=== PATIENT | female | born 1995 | race Caucasian/White ===

== ENCOUNTER 2022-07-01 16:24 | Outpatient (REF) | payer OTHER, SELFPAY ==
--- NOTE | ~2022-07-01 | XR_ITS ---
EXAMINATION: XR LUMBOSACRAL SPINE CLINICAL INFORMATION: Pain COMPARISON: None available. TECHNIQUE: Three views of the lumbosacral spine. FINDINGS: Bone alignment is normal. No fracture or dislocation. Normal disc spaces. Lower lumbar spine facet arthritis. XR/XR lumbar spine 2-3V IMPRESSION: Lower lumbar spine facet arthritis.
== END 2022-07-01 16:25 | disposition home or self-care (01) ==
LOC: HO.XRAY 16:24
PROVIDERS: PCP Internal Medicine; Visit Provider Internal Medicine
DX: M54.41 Lumbago with sciatica, right side (principal); G89.29 Other chronic pain
CPT/HCPCS: 72100

== ENCOUNTER 2022-09-23 17:15 | Outpatient (REF) | payer OTHER, SELFPAY ==
[2022-09-24 04:00] LABS: Influenza A PCR NEGATIVE (Negative); Influenza B PCR NEGATIVE (Negative); Resp Syncy Virus RNA Qual PCR NEGATIVE (Negative); SARS COV2 PCR INHOUSE NEGATIVE (Negative)
== END 2022-09-23 17:16 | disposition home or self-care (01) ==
LOC: HO.HHCLNP 17:15
PROVIDERS: Visit Provider Registered Nurse
DX: J02.9 Acute pharyngitis, unspecified (principal); Z20.822 Contact with and (suspected) exposure to COVID-19
CPT/HCPCS: 0241U; 87070

== ENCOUNTER 2022-10-13 18:01 | Outpatient (REF) | payer OTHER, SELFPAY | END 2022-10-13 18:02 | disposition home or self-care (01) | LOC: HO.HHCLNP 18:01 | PROVIDERS: Visit Provider Registered Nurse | DX: N30.01 Acute cystitis with hematuria (principal) | CPT/HCPCS: 87086 ==

== ENCOUNTER 2022-10-21 13:30 | Outpatient (REF) | payer OTHER, SELFPAY ==
--- NOTE | ~2022-10-21 | US_ITS ---
EXAMINATION: US RETROPERITONEAL LIMITED (RENAL ONLY) CLINICAL INFORMATION: Hematuria. Back pain. COMPARISON: None available. TECHNIQUE: Real-time imaging of the kidneys. Technically limited study secondary to bowel gas and body habitus. FINDINGS: RIGHT KIDNEY: 10.6 x 4.8 x 5.0 cm (SAG x AP x TRV). The kidney is normal in size, contour, and echogenicity. Renal cortical thickness is normal. No calculi or focal parenchymal lesions. No hydronephrosis. LEFT KIDNEY: 10.9 x 6.4 x 4.5 cm (SAG x AP x TRV). The kidney is normal in size, contour, and echogenicity. Renal cortical thickness is normal. No calculi or focal parenchymal lesions. No hydronephrosis. US/US renal BI IMPRESSION: Unremarkable examination.
== END 2022-10-21 13:31 | disposition home or self-care (01) ==
LOC: HO.US 13:30
PROVIDERS: PCP Internal Medicine; Visit Provider Registered Nurse
DX: N30.01 Acute cystitis with hematuria (principal); M54.9 Dorsalgia, unspecified
CPT/HCPCS: 76775

== ENCOUNTER 2022-11-11 18:12 | Emergency (ER) | payer OTHER, SELFPAY ==
--- NOTE | ~2022-11-11 | US_ITS ---
EXAMINATION: US VENOUS ULTRASOUND WITH DOPPLER LOWER EXTREMITY, LEFT CLINICAL INFORMATION: Pain. COMPARISON: None available. TECHNIQUE: Ultrasound of the deep veins is performed from the hip to the calf with compression sonography and color and pulse Doppler assessment. Spectral analysis with color-flow imaging is performed. FINDINGS: There is normal venous compression and respiratory variation and augmented flow. The visualized common femoral vein, superficial femoral vein, profunda femoral vein, popliteal vein, and the trifurcation region shows no evidence of deep venous thrombosis. There is no significant popliteal fossa cyst. If the patient's symptoms persist, followup ultrasound in 5 days 7 days might be of value to exclude proximal propagation from a non-visualized calf vein. US/US venous duplex LE LT IMPRESSION: No DVT demonstrated in the left lower extremity.
--- NOTE | ~2022-11-11 | XR_ITS ---
EXAMINATION: XR KNEE, LEFT CLINICAL INFORMATION: Pain COMPARISON: None available. TECHNIQUE: Four views of the left knee. FINDINGS: No acute visible fracture or dislocation. Joint spaces and alignment are maintained. No large knee joint effusion. Soft tissues are unremarkable. XR/XR knee LT 3V IMPRESSION: No acute visible fracture or dislocation.
[2022-11-11 18:25] VITALS: BP 138/86; PULSE 96; RESP 16; TEMP 36.6; O2SAT 97; BMI 43.3
--- NOTE | 2022-11-11 18:27 | ED_ITS ---
HPI - General Adult General Chief complaint: Extremity Problem Stated complaint: L knee swollen, no injury Time Seen by Provider: 11/11/22 19:13 Source: patient Mode of arrival: ambulatory Limitations: no limitations History of Present Illness HPI narrative: Patient is a 27-year-old female who presents emergency department for evaluation of atraumatic left knee pain and swelling for the past 3 days. Tenderness upon palpation. Denies any history of similar. Denies redness, warmth, fevers, chills numbness or tingling of the lower extremity. Denies calf pain, swelling, personal history of DVT/PE/malignancy, with recent prolonged immobilization or surgery. Related Data Allergies Allergy/AdvReac Type Severity Reaction Status Date / Time No Known Allergies Allergy Verified 11/11/22 18:25 Review of Systems Review of Systems: Yes all other systems are reviewed and are negative [facility] Past Medical History Attestation statement: The following information was validated with the patient. Source: old records reviewed Social History Social History Advance Directives: No Advance Directives Information Provided: Yes Physical Exam ED Vital Signs: Vital Signs - 24 hr 11/11/22 18:25 Temperature 97.9 F Pulse Rate 96 Respiratory Rate 16 Blood Pressure 138/86 Pulse Oximetry 97 Oxygen Delivery Method Room Air BMI result Body Mass Index 43.3 Appearance: Alert.?Oriented to person, place and time. No acute distress.?Normal affect. Neck: Normal inspection.? Neck supple.?? CVS: Heart sounds normal. Normal heart rate and rhythm.? Pulses normal.?? Respiratory: No respiratory distress.? Lung sounds clear to auscultation bilaterally?? Abdomen: Soft and non-tender. Skin: Skin warm and dry.? Normal skin color.? Extremities: No lower extremity edema.? No calf ttp?left knee with no laxity upon examination, no erythema, no warmth, no large effusion. 2+ DP/PT pulse bilaterally. Localized tenderness to the suprapatellar region. Neuro: Moves all extremities spontaneously. Sensation intact bilaterally. Ambu lates with normal steady gait. Course Course Course Narrative: RME- 27 year old female presents for evaluation of two days of left knee swelling. Denies any specific injury. She is on oral contraception. Plan for xray and us of left lower extremity Medical Decision Making Medical Decision Making MDM Narrative: Patient is a 27-year-old female presents emergency department for evaluation of atraumatic left knee pain and subjective swelling with onset 3 days ago. Upon physical examination there is no laxity, no effusion, no erythema or warmth to suggest a septic arthritis. Unlikely fracture dislocation given atraumatic nature. Reviewed XR imaging which confirms no fracture dislocation. Venous duplex ultrasound was obtained which reveals no evidence of DVT. Discussed plan of care for discharge to, outpatient follow-up with primary care provider, rest, ice, compression, elevation, in addition to acetaminophen and ibuprofen for pain. Differential Diagnosis Differential Diagnoses: The differential diagnosis associated with the presentation includes (As noted above) Independent Interpretation I performed an independent interpretation of an: Plain X-Ray (I personally interpreted XR imaging of the left knee and agree with radiologist impression, no overt effusion, fracture dislocation) Radiology Impression Discussion of test interpretation with radiology: I have reviewed the radiologist's reading. Radiologist Impression: XR/XR knee LT 3V IMPRESSION: No acute visible fracture or dislocation. US/US venous duplex LE LT IMPRESSION: No DVT demonstrated in the left lower extremity. Prescription Management I considered prescription management with: Pain Medication (Acetaminophen/ibuprofen) Discharge Plan Discharge Clinical Impression: Arthralgia of knee, left Patient Disposition: Home, Self-Care Instructions: Knee Pain (ED), Arthralgia (ED) Additional Instructions: Your ultrasound and x-ray today were normal. This is very reassuring. Please be sure to rest, apply ice for 10-15 minutes 3-4 times daily, use Bossman bandage for compression, elevate your leg above the level of your chest. You can take ibuprofen 200 mg, 3 tablets (600mg) every 6-8 hours as needed for pain, in addition to Tylenol 500 mg, 2 tablets (1,000mg) every 4-6 hours as needed for pain, but not to exceed 3 doses daily (3,000mg).? Contact your primary care provider to arrange for follow-up. You may return back to emergency department any new or worsening symptoms or concerns. Referrals: Meg Hickey MD [Primary Care Provider] - Interventions: ED Discharge Assessment Last Done: 11/11/22 21:10 Discharge Date/Time: 11/11/22 21:11
== END 2022-11-11 21:11 | disposition home or self-care (01) ==
PROVIDERS: Emergency Provider Student in an Organized Health Care Education/Training Program; PCP Internal Medicine
DX: R60.0 Localized edema (principal); M25.562 Pain in left knee
CPT/HCPCS: 73562; 93971; 99282; 99284

== ENCOUNTER 2023-02-18 09:03 | Outpatient (REF) | payer OTHER, SELFPAY ==
[2023-02-18 11:54] LABS: Estimated Average Glucose 97 mg/dL
[2023-02-18 12:22] LABS: Anion Gap 11 (12-20); Blood Urea Nitrogen 6 mg/dL (9-16); Calcium 9.2 mg/dL (8.4-10.2); Carbon Dioxide 25 mmol/L (22-29); Chloride 108 mmol/L (96-108); Cholesterol 169 mg/dL (<200); Estimated Glomerular Filt Rate > 60; Glucose Random 93 mg/dL (60-115); HDL Cholesterol 54 mg/dL (>40); LDL Cholesterol Calculated 104 mg/dL (<100); Potassium 3.8 mmol/L (3.3-5.1); Sodium 140 mmol/L (135-145); Triglycerides 55 mg/dL (<150)
[2023-02-18 12:29] LABS: TSH reflex Free T4 1.31 uIU/mL (0.32-4.0)
== END 2023-02-18 09:04 | disposition home or self-care (01) ==
LOC: HO.HHCL 09:03
PROVIDERS: Visit Provider Internal Medicine
DX: E66.01 Morbid (severe) obesity due to excess calories (principal); E78.5 Hyperlipidemia, unspecified; Z68.41 Body mass index [BMI] 40.0-44.9, adult
CPT/HCPCS: 36415; 80048; 80061; 83036; 84443

== ENCOUNTER 2023-10-21 15:02 | Outpatient (AMB) | payer OTHER, SELFPAY ==
--- NOTE | 2023-10-21 15:08 | MHC.OFFVIS ---
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 The patient states that she 1st injured her left knee when she fell down a flight of stairs while living in [place]. Several years later she re-injured her left knee when she crashed while snow sledding. Her pain has gotten worse over the last year in spite of continued non operative treatments. She has failed the last 6 weeks of conservative treatment. She has done physical therapy which aggravated her pain. She has also tried Tylenol and anti-inflammatory medicines which gave her minimal relief. Most of the pain is along the medial aspect of the patient's knee. She states that her left knee will give out several times per day. Allergies No Known Allergies Allergy (Verified 10/21/23 15:21) Medication List - Last Reconciled 10/21/23 by Bernardo Dawson MD drospirenone-ethinyl estradiol 3-0.03 mg 1 tab PO DAILY famotidine 20 mg PO DAILY famotidine 20 mg PO DAILY fluoride (sodium) 1.1% (Sodium Fluoride 5000 Dry Mouth) 1 appl dental DAILY fluoride (sodium) 1.1% (SF 5000 Plus) 1 appl dental DAILY fluticasone propionate 50 mcg/actuation 1 spray intranasal DAILY hydroxyzine HCl 25 mg PO BEDTIME loratadine 10 mg PO DAILY PFSH Social History (Updated 10/21/23 @ 15:31 by ALISSA Marin) Alcohol intake: current Alcohol intake frequency: holidays/special occasions only Patient Tobacco Use Status: Never used Tobacco Current occupational status: employed Physical Exam Vital Signs: BMI result Body Mass Index 43.9 Const Other: Well-nourished well-developed very friendly female awake alert and oriented x3 in no acute distress Extrem Other: Bilateral lower extremity examination shows good capillary refill, no skin lesions noted, normal sensation light touch Left knee examination shows a minimal effusion, minimal crepitus with range of motion, tenderness along her medial joint line, positive Leonard's test, no instability Results Reviewed Results Reviewed: Standing full weight-bearing x-rays of the patient's left knee show no significant bony abnormalities Assessment & Plan Assessment & Plan (1) Left knee pain: Code(s): M25.562 - Pain in left knee Category: Medical Plan Ms. Nicholas Berkowitz presents with progressively worsening left knee pain and mechanical symptoms most likely due to a tear of her medial meniscus. Thus, I will send the patient for an MRI of her left knee for further evaluation. I will see her back once the MRI is completed to discuss the findings and treatment options. Feel free to call me at any time should questions regarding her orthopedic management arise. Thank you very much for asking me to see this very friendly patient. I spent 22 minutes in reviewing the patient's records and imaging studies, seeing the patient and documenting in the medical record. Orders: Orders MR knee LT wo con 10/21/23 M25.562 - Pain in left knee Coding Level of Care Code New Pt Level 3 (94769) Diagnoses Left knee pain M25.562
[2023-10-21 15:12] VITALS: BMI 43.9
== END 2023-10-21 15:32 | disposition home or self-care (01) ==
PROVIDERS: PCP Internal Medicine; Visit Provider Orthopaedic Surgery
DX: M25.562 Pain in left knee (principal)
CPT/HCPCS: 99203

== ENCOUNTER → 2023-10-21 15:02 | Outpatient (BNVA) | payer OTHER, SELFPAY | PROVIDERS: PCP Internal Medicine; Visit Provider Orthopaedic Surgery ==

== ENCOUNTER 2023-11-17 14:59 | Outpatient (REF) | payer OTHER, SELFPAY ==
[2023-11-17 17:52] LABS: C Reactive Protein 0.99 mg/dL (< or = 0.50)
[2023-11-17 17:55] LABS: Rheumatoid Factor < 13.0 IU/mL (<15.0)
[2023-11-17 20:05] LABS: Erythrocyte Sedimentation Rate 23 MM/HR (0-20)
[2023-11-19 01:27] LABS: Lyme Abs Screen <0.90 index
[2023-11-19 14:03] LABS: Anti Nuclear Antibody Screen NEGATIVE (NEGATIVE)
== END 2023-11-17 15:00 | disposition home or self-care (01) ==
LOC: HO.LAB 14:59
PROVIDERS: PCP Internal Medicine; Visit Provider Orthopaedic Surgery
DX: S83.242A Other tear of medial meniscus, current injury, left knee, initial encounter (principal); M25.50 Pain in unspecified joint
CPT/HCPCS: 36415; 85652; 86038; 86140; 86431; 86617; 86618

== ENCOUNTER 2023-11-17 14:59 | Outpatient (AMB) | payer OTHER, SELFPAY ==
[2023-11-17 15:01] VITALS: BMI 44.6
--- NOTE | 2023-11-17 15:01 | A.OFFVIS_ITS ---
Vital Signs 11/17/23 15:01 Height 5 ft 5 in Weight 268 lb BMI 44.6 Intake Visit Reasons: Left knee pain and giving way Intake Note: Antony is a 28 year old female who presents with complaints of progressively worsening left knee pain and giving way. The patient states that she 1st injured her left knee when she fell down a flight of stairs while living in [place] several years ago. One year later she re-injured her left knee when she crashed while snow sledding. Her pain has gotten worse over the last year in spite of continued non operative treatments. She has failed the last 6 weeks of conservative treatment. She has done physical therapy which aggravated her pain. She has also tried Tylenol and anti-inflammatory medicines which gave her minimal relief. Most of the pain is along the medial aspect of the patient's knee. She states that her left knee will give out several times per day. The patient was evaluated by her primary care physician, Dr. Meg Martinez, several months ago. Dr. Martinez ordered an MRI of the patient's left knee on 09/01/2023. The patient has conservative treatment began at that time which is over 2 months ago. The patient has been doing physical therapy exercises which aggravated her pain. I once again ordered an MRI of her left knee on 10/21/2023. Once again that MRI was denied by the patient's insurance company. The patient does have a history of diffuse, generalized joint pains. She does have fibromyalgia. She has not been tested for rheumatoid arthritis or Lyme disease. Allergies No Known Allergies Allergy (Verified 11/17/23 15:03) Medication List - Last Reconciled 11/17/23 by Bernardo Dawson MD drospirenone-ethinyl estradiol 3-0.03 mg 1 tab PO DAILY famotidine 20 mg PO DAILY famotidine 20 mg PO DAILY fluoride (sodium) 1.1% (Sodium Fluoride 5000 Dry Mouth) 1 appl dental DAILY fluoride (sodium) 1.1% (SF 5000 Plus) 1 appl dental DAILY fluticasone propionate 50 mcg/actuation 1 spray intranasal DAILY hydroxyzine HCl 25 mg PO BEDTIME loratadine 10 mg PO DAILY PFSH Social History (Updated 10/21/23 @ 15:31 by ALISSA Marin) Alcohol intake: current Alcohol intake frequency: holidays/special occasions o nly Patient Tobacco Use Status: Never used Tobacco Current occupational status: employed Physical Exam Vital Signs: BMI result Body Mass Index 44.6 Const Other: Well-nourished well-developed very friendly female awake alert and oriented x3 in no acute distress Extrem Other: Bilateral lower extremity examination shows good capillary refill, no skin lesions noted, normal sensation light touch Left knee examination shows a minimal effusion, minimal crepitus with range of motion, tenderness along her medial joint line, positive Leonard's test Results Reviewed Results Reviewed: Standing full weight-bearing x-rays of the patient's left knee show minimal joint space narrowing, no acute bony abnormalities Assessment & Plan Assessment & Plan (1) Tear of medial meniscus of left knee: Code(s): S83.242A - Other tear of medial meniscus, current injury, left knee, initial encounter Category: Medical Plan Zor presents with progressively worsening left knee pain and mechanical symptoms most likely due to a tear of her medial meniscus. The patient's conservative treatment began on 09/01/2023. She has failed over 8 weeks of conservative treatment. That treatment has included physical therapy exercises, topical creams, Tylenol and anti-inflammatory medicines. Thus, I will reorder an MRI of the patient's left knee. I will also send her for blood work to help rule out rheumatoid arthritis and Lyme disease. Feel free to call me at any time should questions regarding her orthopedic management arise. I spent 21 minutes in reviewing the patient's records and imaging studies, seeing the patient and documenting in the medical record. Orders: Orders MR knee LT wo con Today S83.242A - Other tear of medial meniscus, current injury, left knee, initial encounter Rheumatoid Factor Today M25.50 - Pain in unspecified joint C Reactive Protein Today M25.50 - Pain in unspecified joint NEFTALI Reflex Titer and Pattern Today M25.50 - Pain in unspecified joint Lyme IgG/IgM w/reflex to WB Today M25.50 - Pain in unspecified joint Erythrocyte Sedimentation Rate Today M25.50 - Pain in unspecified joint Coding Level of Care Code Est Pt Level 3 (41329) Complex EM visit Add On G2211 Diagnoses Tear of medial meniscus of left knee S83.242A
== END 2023-11-17 15:20 | disposition home or self-care (01) ==
PROVIDERS: PCP Internal Medicine; Visit Provider Orthopaedic Surgery
DX: S83.242A Other tear of medial meniscus, current injury, left knee, initial encounter (principal); W10.8XXA Fall (on) (from) other stairs and steps, initial encounter
CPT/HCPCS: 99213

== ENCOUNTER 2023-12-24 18:19 | Outpatient (REF) | payer OTHER, SELFPAY ==
--- NOTE | ~2023-12-24 | MR_ITS ---
EXAMINATION: MR KNEE WITHOUT CONTRAST, LEFT CLINICAL INFORMATION: Left knee pain. Evaluate for a meniscal tear. COMPARISON: Left knee radiographs dated 11/11/2022. TECHNIQUE: MRI of the knee without contrast was performed using routine sequences on a high-field scanner. FINDINGS: MENISCI: Medial Meniscus: Intact. Lateral Meniscus: Oblique inner margin tear through the posterior aspect of the meniscal body and extending into the posterior horn. LIGAMENTS: Cruciate: Intact. Collateral: Mild edema adjacent to the medial collateral ligament consistent with an acute grade 1 sprain/partial tear. No measurable defect. Intact fibular collateral ligament. EXTENSOR MECHANISM: Intact. ARTICULAR CARTILAGE/BONE: Patellofemoral Compartment: Intact articular cartilage. Medial Compartment: Intact articular cartilage. Lateral Compartment: Intact articular cartilage. JOINT FLUID AND BURSAE: Trace joint effusion and trace Tran's cyst. MR/MR knee LT wo con IMPRESSION: 1. Oblique inner margin tear of the lateral meniscal body and posterior horn. 2. Acute grade 1 sprain/partial tear of the medial collateral ligament. 3. Trace joint effusion and trace Tran's cyst. Electronically signed by: Joe Hi MD 01/11/2024 11:51 AM [facility]
== END 2023-12-24 18:20 | disposition home or self-care (01) ==
LOC: HO.MRI 18:19
PROVIDERS: PCP Internal Medicine; Visit Provider Orthopaedic Surgery
DX: S83.242A Other tear of medial meniscus, current injury, left knee, initial encounter (principal)
CPT/HCPCS: 73721

== ENCOUNTER 2024-01-24 13:58 | Outpatient (AMB) | payer OTHER, SELFPAY ==
--- NOTE | 2024-01-24 14:07 | MHC.OFFVIS ---
Vital Signs 01/24/24 14:08 Height 5 ft 5 in Weight 268 lb BMI 44.6 Intake Visit Reasons: OV Left knee MRI review Intake Note: Antony is a 29 year old female who presents with complaints of intermittent discomfort along the medial aspect of her left knee. She states that her symptoms have gotten somewhat better since her last appointment. She denies any locking or giving way. She would like to start an exercise program. Allergies No Known Allergies Allergy (Verified 01/24/24 14:08) Medication List - Last Reconciled 01/25/24 by Bernardo Dawson MD drospirenone-ethinyl estradiol 3-0.03 mg 1 tab PO DAILY famotidine 20 mg PO DAILY famotidine 20 mg PO DAILY fluoride (sodium) 1.1% (Sodium Fluoride 5000 Dry Mouth) 1 appl dental DAILY fluoride (sodium) 1.1% (SF 5000 Plus) 1 appl dental DAILY fluticasone propionate 50 mcg/actuation 1 spray intranasal DAILY hydroxyzine HCl 25 mg PO BEDTIME loratadine 10 mg PO DAILY PFSH Social History (Updated 10/21/23 @ 15:31 by ALISSA Marin) Alcohol intake: current Alcohol intake frequency: holidays/special occasions only Patient Tobacco Use Status: Never used Tobacco Current occupational status: employed Physical Exam Vital Signs: BMI result Body Mass Index 44.6 Const Other: Well-nourished well-developed very friendly female awake alert and oriented x3 in no acute distress Extrem Other: Bilateral lower extremity examination shows good capillary refill, no skin lesions noted, normal sensation light touch Left knee examination shows a minimal effusion, minimal crepitus with range of motion, tenderness along her medial joint line, no instability Results Reviewed Results Reviewed: MRI of the patient's left knee shows a grade 1 sprain of the medial collateral ligament, a possible small tear of the lateral meniscus, no acute bony abnormalities Assessment & Plan Assessment & Plan (1) Left knee pain: Code(s): M25.562 - Pain in left knee Category: Medical Plan Antony presents with intermittent left knee discomfort due to a medial collateral ligament sprain. I had a lengthy discussion with the patient regarding the treatment options. At this point the patient's symptoms are improving with activity modifications. She will continue with her [id number] exercises to prevent stiffness. She will follow up with me on an as-needed basis should her symptoms worsen in any way. Feel free to call me at any time should questions regarding her orthopedic management arise. I spent 21 minutes in reviewing the patient's records and imaging studies, seeing the patient and documenting in the medical record. Coding Level of Care Code Est Pt Level 3 (73635) Complex EM visit Add On G2211 Diagnoses Left knee pain M25.562
[2024-01-24 14:08] VITALS: BMI 44.6
== END 2024-01-24 14:19 | disposition home or self-care (01) ==
PROVIDERS: PCP Internal Medicine; Visit Provider Orthopaedic Surgery
DX: M25.562 Pain in left knee (principal)
CPT/HCPCS: 99213